=== PATIENT | female | born 1955 | race Caucasian/White ===

== ENCOUNTER 2017-06-17 13:06 | Observation (INO) | payer BC, SELFPAY ==
[2017-06-17] VITALS (9 sets, daily range): BP systolic 98–140; BP diastolic 56–68; PULSE 57–77; RESP 10–18; TEMP 36.6–36.7; O2SAT 94–99; BMI 30.7; BMI 30.4
--- NOTE | 2017-06-17 13:16 | EKG12_ITS ---
Test Reason : Blood Pressure : / mmHG Vent. Rate : 070 BPM Atrial Rate : 070 BPM P-R Int : 146 ms QRS Dur : 086 ms QT Int : 418 ms P-R-T Axes : 053 004 029 degrees QTc Int : 451 ms Normal sinus rhythm Nonspecific ST and T wave abnormality Abnormal ECG Confirmed by JIMMIE BHATTI, SHIRA ([id number]), design editor EZEKIEL PAUL ([id number] on 06/20/2017 2:50:37 PM Referred By: CARISA Confirmed By:SHIRA SAMUEL MD
--- NOTE | 2017-06-17 13:16 | RAD_ITS ---
STUDY: X-RAY CHEST REASON FOR EXAM: Female, 61 years old. Chest pain. TECHNIQUE: Single AP portable view of the chest. COMPARISON: None. FINDINGS: EKG electrodes are seen. The lungs are clear and expanded. Scattered calcified granulomas. There is no demonstrated pleural abnormality. Normal size heart. Normal mediastinum and angela. Normal visualized pulmonary arteries. There is atherosclerotic calcification of the aortic arch with tortuosity. Normal visualized thoracic spine. Normal visualized ribs, clavicles, and shoulders. There is no demonstrated abnormality of the visualized soft tissue structures of the upper abdomen. RAD/Chest 1 View (Portable) IMPRESSION: Normal x-ray examination of the chest. Electronically Signed: Jeff Alexis MD at 13:45 EST Tel [phone], Service support ,
[2017-06-17] MEDS: Aspirin 81 MG TAB.CHEW 324 MG PO (13:26)
[2017-06-17 13:30] LABS: Absolute Lymphocyte Count 4.69 X10^3/ul (0.83-4.51); Absolute Neutrophil Count 2.9 X10^3/uL (2.0-7.7); Basophil# 0.01 X10^3/uL; Basophil% 0.1 % (0-1); Eosinophil# 0.05 X10^3/uL; Eosinophils% 0.6 % (0-5); Hemoglobin 12.8 g/dl (12.0-15.0); Lymphocyte # 4.69 X10^3/ul (4.0); Lymphocyte % 57.9 % (19-41); Mean Corp Hgb Conc 33.7 g/gl (32-36); Mean Corpuscular Hgb 33.3 pg (27.0-32.0); Mean Platelet Vol. 9.8 fl (6.2-12.0); Monocyte# 0.42 X10^3/uL; Monocyte% 5.2 % (0-10); Neutrophil # 2.92 X10^3/uL (2.7-7.7); Neutrophil % 36.1 % (47-70); Platelet Count 209 K/mm3 (150-450); RBC Distribution Width SD 47.3 fl (35.1-43.9); Red Blood Count 3.84 M/mm3 (4.2-5.4); White Blood Count 8.1 K/mm3 (4.4-11.0)
[2017-06-17 13:31] LABS: POSITIVE COUNT NO; POSITIVE DIFFERENTIAL NO; POSITIVE MORPHOLOGY NO
[2017-06-17 13:43] LABS: Anion Gap 6 (5-15); BUN 13 mg/dL (7-18); BUN/Creat Ratio 20.4 RATIO (10-20); Calcium,Total 8.5 mg/dL (8.5-10.1); Chloride 108 mmol/L (98-107); Creatinine, Serum 0.64 mg/dL (0.55-1.02); EST Glomerular Filtration Rate 100 mL/min (>60); Est Glom Filt Rate - Afr Amer 121 mL/min (>60); Glucose 88 mg/dL (74-106); Sodium Level 140 mmol/L (136-145)
--- NOTE | 2017-06-17 13:49 | ED.VISSUMM ---
- ER Visit Summary Date of Service: 06/17/17 Chief Complaint: Chest pain History of Present Illness: The patient is a 61 F presenting with chest pain which started 1-2 hours ago. She states the pain has been intermittent lasting several minutes. It is a dull substernal pain. She states it radiates to her left arm and neck. She denies nausea, vomiting, diaphoresis, shortness of breath. She complains of lightheadedness. She states 2 days ago she had similar symptoms. It worsened today and therefore she presented to the ED. She has a history of borderline hypercholesterolemia. She is a smoker. Denies PE/DVT risk factors. Physical Examination: Vitals are stable. Patient is afebrile. Alert no acute distress. HEENT exam is unremarkable. Neck is supple. Lungs are clear and equal bilaterally. Heart is regular rate and rhythm. Abdomen is soft nontender nondistended. Extremities are unremarkable. Skin is warm and dry. No focal neurologic deficit. Remainder of exam is unremarkable. Emergency Department Course and Treatment: Patient was given aspirin on arrival. EKG is sinus rhythm rate of [address]-T changes. Chest x-ray shows no acute process. CBC, chemistries unremarkable. Troponin is negative. On reevaluation, she is chest pain-free. Discussed with the hospitalist for observation. Disposition: Observation Impression: Chest pain This note was generated with [employer] dictation software. It may contain incorrect words, spelling, and punctuation that were not noted in review of the chart prior to signing ED Disposition - Plan for ED Patient: Chief Complaint: Chest Pain
--- NOTE | 2017-06-17 15:39 | PCM.HP.STD ---
Problem List (1) Chest pain Status: Acute (2) Nicotine abuse Status: Chronic (3) Obesity (BMI 30.0-34.9) Status: Chronic (4) GERD (gastroesophageal reflux disease) Status: Chronic History of Present Illness Date of Admission: 06/17/17 Chief Complaint: chest pain The patient is a 61 year old F with a hx of GERD, smoking, and obesity who presented to the ER from home for chest pain. This initially began about 3 am two days prior. She woke up with the pain while sleeping and described it as a severe midsternal chest ache. It was present for about 2 hours before spontaneously resolving. She could not describe any specific aggravating or alleviating factors. Later that day she did not have any further pain. Today however she was helping her mother bathe when she suddenly began to have the same chest discomfort. This time it would last for about 20 minutes before resolving, and it continued to come and go throughout the day. This prompted her to present to the ER. She noted that the pain did radiate into her back under the left scapula, into her upper left arm, and upper neck into her chin. She had no associated shortness of breath, nausea, vomiting, dizziness, lightheadedness, or palpitations. She has had stress tests in the past, the most recent was in [place] about 2 years ago which was negative. This was done for chest pain that she describes as similar to the current episode. He only medication she takes is Protonix for acid reflux. She has smoked for about 30 years, currently smoking about 5 packs per day. 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 Review of Systems Constitutional: Denies: Chills, Fever, Weight Change, Fatigue HEENT: Denies: Head Aches, Sinus Congestion, Sinus Drainage Cardiovascular: Reports: Chest Pain. Denies: Chest Pressure, Chest Tightness, Edema, Heaviness, Light Headedness, Palpitations Respiratory: Denies: Cough, Shortness of Breath, Shortness of breath at rest, Shortness of breath upon exertion, Sputum production Gastrointestinal: Denies: Abdominal Pain, Diarrhea, Nausea, Vomiting Genitourinary: Denies: Dysuria Musculoskeletal: Denies: Joint Pain, Joint Tenderness Skin: Denies: Rash, Wounds Neurological: Denies: Numbness, Tingling, Focal weakness Psychiatric: Denies: Anxiety, Depression, Homicidal Ideations, Suicidal Ideations Hematologic/ Lymphatic: Denies: Easy Bruising, Easy Bleeding VTE Information - Inpt Only VTE Present on Admission: No VTE Mechan Device Prophylaxis: SCD's VTE Pharm Prophylaxis ordered?: Yes Patient Problems: Active and Suspected Problems Chest pain (Acute) - Physical Exam General: Alert, Oriented x3, Cooperative HEENT: Atraumatic, PERRLA, EOMI, Normocephalic Neck: Supple, No JVD, Negative Carotid Bruits Lungs: Clear to auscultation, Normal air movement Cardiovascular: Regular rate, No murmurs Abdomen: Bowel Sounds Present, Soft, Non Tender Extremities: No edema, Capillary Refill Less than 3 Seconds Skin: No rashes, No breakdown Musculoskeletal: No Tenderness to Palpation of Joints or Extremities Neurological: Cranial nerves II-XII grossly intact Psych/Mental Status: Normal Affect, Appropriate, Alert and oriented to time, place, person, mood and affect Vital Signs Temp Pulse Resp BP Pulse Ox 98.0 F 61 16 116/65 99 06/17/17 13:07 06/17/17 15:14 06/17/17 15:14 06/17/17 15:14 06/17/17 15:14 Oxygen Delivery Method Room Air Assessment/Plan Active and Suspected Problems Chest pain (Acute) 1. Chest pain - intermittent, midsternal aching radiating into the back, left arm, neck, and chin. Hx of smoking and obesity. No family hx of heart disease, no personal hx of prior heart disease. She last had a negative stress for the same symptoms about 2 years ago in [place]. She has a negative troponin, negative EKG, negative CXR. Blood work and physical exam were unremarkable. BP was initially somewhat elevated and has returned to normal since. Will plan tp cycle enzymes, check Echo, repeat EKG in AM, maintain on tele, and treadmill stress test in the AM. 2. Nicotine abuse - patch if desired 3. GERD - continue protonix DVT ppx: lovenox This patient was seen by Suman Howe PA-C under the supervision of Doctor Mansoor.
--- NOTE | 2017-06-17 15:53 | ECHOD_ITS ---
Reason For Study: Chest Pain Procedure This was a 2D Doppler, Color Flow transthoracic echocardiogram. Exam performed portable in patient room. Left Ventricle Normal LV size. Left ventricular systolic function is normal. The estimated ejection fraction is 60 %. No evidence for diastolic dysfunction. No regional wall motion abnormalities noted. Right Ventricle Normal RV size. Normal systolic function. Atria Normal left atrium. Normal right atrium. Mitral Valve Normal mitral valve. Mild (1+) eccentric mitral valve insufficiency. Tricuspid Valve Normal tricuspid valve. Mild (1+) tricuspid valve insufficiency. Pulmonary artery systolic pressure is 20 mmHg. Aortic Valve Normal aortic valve. Trisinus/trileaflet aortic valve. Pulmonic Valve Normal pulmonic valve. Great Vessels Normal aortic root. The pulmonary artery is normal size. Normal inferior vena cava. Pericardium/Pleural No pericardial effusion. MMode/2D Measurements & Calculations LVIDd: 4.1 cm IVSd: 1.3 cm Ao root diam: 2.9 cm LVIDs: 2.9 cm LVPWd: 1.3 cm LA dimension: 4.0 cm RVDd: 3.3 cm FS: 30.4 % LAV(MOD-bp): 43.7 ml LA A4 area: 16.7 cm2 RA A4 area: 12.2 cm2 LAV(MOD-bp) Indexed: 23.5 ml/m2 LAV(MOD-sp2): 43.5 ml LAV(MOD-sp4): 42.2 ml Doppler Measurements & Calculations MV E max roberto: 61.0 cm/sec Lat Peak E' Roberto: 11.2 cm/sec Med Peak E' Roberto: 7.2 cm/sec MV A max roberto: 82.1 cm/sec E/E' lat: 5.5 E/E' med: 8.4 MV E/A: 0.74 Ao V2 max: 133.5 cm/sec AI max roberto: 371.7 cm/sec LV V1 max: 97.3 cm/sec Ao max P.1 mmHg AI max P.3 mmHg LV V1 max P.8 mmHg Ao V2 mean: 95.6 cm/sec AI dec slope: 175.8 cm/sec2 Ao mean P.0 mmHg AI P1/2t: 619.1 msec Ao V2 VTI: 30.8 cm PA V2 max: 91.3 cm/sec TR max roberto: 205.2 cm/sec TR max P.9 mmHg Interpretation Summary Normal LV size. Left ventricular systolic function is normal. The estimated ejection fraction is 60 %. No evidence for diastolic dysfunction. Pulmonary artery systolic pressure is 20 mmHg. Ordering Physician: Marquis Max Performed By: Tasha Sandra RDCS, RVT
[2017-06-17] MEDS: Heparin Injection 5,000 UNITS/ML Syringe 5000 UNITS SC (21:03)
[2017-06-18 02:45] VITALS: BP 104/54; PULSE 67; RESP 16; TEMP 36.7; O2SAT 94
[2017-06-18 03:26] VITALS: PULSE 64
--- NOTE | 2017-06-18 04:00 | EKG12_ITS ---
Test Reason : AM EKG Blood Pressure : / mmHG Vent. Rate : 060 BPM Atrial Rate : 060 BPM P-R Int : 162 ms QRS Dur : 090 ms QT Int : 440 ms P-R-T Axes : 057 024 043 degrees QTc Int : 440 ms Normal sinus rhythm Normal ECG When compared with ECG of 17-JUN-2017 13:13, MANUAL COMPARISON REQUIRED, DATA IS UNCONFIRMED Confirmed by JIMMIE BHATTI, SHIRA ([id number]), fan mail editor EZEKIEL PAUL ([id number]) on 06/22/2017 4:20:52 PM Referred By: CHANG Confirmed By:SHIRA SAMUEL MD
[2017-06-18 04:03] LABS: Mean Corp Hgb Conc 33.3 g/gl (32-36); Mean Corpuscular Hgb 33.1 pg (27.0-32.0); Mean Corpuscular Volume 99.2 fL (81-99); Mean Platelet Vol. 9.5 fl (6.2-12.0); Platelet Count 183 K/mm3 (150-450); RBC Distribution Width SD 47.4 fl (35.1-43.9); Red Blood Count 3.63 M/mm3 (4.2-5.4); White Blood Count 5.8 K/mm3 (4.4-11.0)
[2017-06-18 04:04] LABS: Scan Indicated on CBC? Y/N NO
[2017-06-18 04:06] LABS: Prothrombin Time (Protime)PT. 13.5 SECONDS (11.7-14.9)
[2017-06-18 04:07] LABS: Partial Thromboplast Time 33.7 Seconds (24.1-36.2)
[2017-06-18 04:21] LABS: Anion Gap 8 (5-15); BUN 12 mg/dL (7-18); BUN/Creat Ratio 21.2 RATIO (10-20); Calcium,Total 8.3 mg/dL (8.5-10.1); Chloride 106 mmol/L (98-107); Creatinine, Serum 0.56 mg/dL (0.55-1.02); EST Glomerular Filtration Rate 115 mL/min (>60); Est Glom Filt Rate - Afr Amer 139 mL/min (>60); Estimated Creatinine Clearance 89.95 ml/min; Glucose 84 mg/dL (74-106); Potassium 3.6 mmol/L (3.5-5.1); Sodium Level 141 mmol/L (136-145)
[2017-06-18 06:59] VITALS: PULSE 65
[2017-06-18 07:31] LABS: Cholesterol 205 mg/dL (200); High Density Lipoprotein 39 mg/dL; Triglycerides 207 mg/dL; Very Low Density Lipoprotein 41 mg/dL (5-40)
[2017-06-18 08:45] VITALS: BP 124/69; PULSE 65; RESP 16; TEMP 36.5; O2SAT 92
[2017-06-18] MEDS: Pantoprazole Sodium 40 MG Tablet PO (09:10)
--- NOTE | 2017-06-18 10:03 | STRESSREP_ITS ---
Stress Test Report Stress myocardial perfusion test 61-year-old lady with a history of chest pain. Stress protocol: Resting EKG demonstrates normal sinus rhythm with a rate of 62 bpm resting blood pressure is 122/78 mmHg. The patient exercised according to the regular Yifan protocol for total duration of 6 minutes and 31 seconds attaining a maximum heart rate of 160 bpm which was 101% of maximum predicted heart rate the maximum workload attained was 7.8 metabolic equivalents. The patient maintained sinus rhythm throughout the recording. At rest there were no ST or T -wave changes noted suggest ischemia peak exercise upsloping ST changes only were noted we did not meet the criteria for ischemia. The resting blood pressure is 122/78 with a peak blood pressure 182/72. No clinical angina was noted no arrhythmias were noted. Myocardial perfusion protocol. 11.9 mCi of technetium 99m sestamibi was injected at rest. 35.9 mCi of technetium 99m sestamibi was injected at peak exercise after attainment of at least 85% of the maximum predicted heart rate. Stress and rest images were reconstructed and compared in the short axis vertical long horizontal long axis. Gated images were also obtained. Perfusion SPECT analysis: Review of the stress images demonstrate normal uptake of tracer noted in all areas of the myocardium. The resting images similarly demonstrate normal uptake of tracer noted in all areas of the myocardium. No areas of reversibility are noted suggest ischemia. No infarct is noted. Gated SPECT analysis: The gated ejection fraction is 69%. Conclusion: Normal exercise myocardial perfusion stress test at a moderate workload. Preserved ejection fraction.
--- NOTE | 2017-06-18 10:32 | PCM.DC ---
- Discharge Diagnoses Current Active Problems: Current Active and Chronic Problems Chest pain (Acute) Nicotine abuse (Chronic) Obesity (BMI 30.0-34.9) (Chronic) GERD (gastroesophageal reflux disease) (Chronic) You will use the following diet at home:: No restrictions Your food should be the consistency of: Regular Your liquids should be the consistency of: Regular/Thin Discharge Activity: Return to Normal Activity Weight Bearing Status: Full weight bearing Allergies/Adverse Reactions: Allergies No Known Allergies Allergy (Verified 06/17/17 13:09) Medications to take at Discharge Pantoprazole Sodium [Protonix] 40 mg PO DAILY 06/17/17 Primary Care Physician: Aguilar Espitia [Primary Care Provider] - Please follow up with your Primary Care Physician in: in 2 weeks
[2017-06-18 11:14] VITALS: PULSE 67
[2017-06-18 12:50] VITALS: BP 118/67; PULSE 66; RESP 16; TEMP 36.5; O2SAT 93
--- NOTE | 2017-06-19 11:41 | PCM.DC.SUM ---
Discharge Date and Diagnosis Date of Admission: 06/17/17 Date of Discharge: 06/18/17 - Primary Discharge Diagnosis #1 musculoskeletal chest pain #2 GERD - Secondary Discharge Diagnosis Chronic Problems Nicotine abuse (Chronic) Obesity (BMI 30.0-34.9) (Chronic) GERD (gastroesophageal reflux disease) (Chronic) Hospital Course and Treatment Operations: None Procedures: 2-D Echocardiogram, Nuclear stress test Summary of Care Provided: The patient is a 61 year old F was seen in the emergency room at [facility] with chief complaint of intermittent chest pain. She described it as a dull substernal pain. Workup in the emergency room included an EKG which showed a normal sinus rhythm at 70 without ischemic changes, chest x-ray showed no acute process, lab was unremarkable including troponin. Patient's chest discomfort resolved while she was in the emergency room. Patient was placed in observation status on PCU, cardiac enzymes were cycled, these remained normal and she underwent a nuclear exercise stress test which was negative for reversible ischemia. Patient also underwent an echocardiogram which showed a normal EF and no evidence of valvular disease. On 06/18/17, patient was seen and examined and felt to be in stable condition for discharge home Discharge Activity: Return to Normal Activity Weight Bearing Status: Full weight bearing Home Medications: Medications to take at Discharge Pantoprazole Sodium [Protonix] 40 mg PO DAILY 06/17/17 Primary Care Physician: Aguilar Espitia [Primary Care Provider] - Please follow up with your Primary Care Physician in: in 2 weeks Please Follow Up With: Aguilar Espitia When: 2 weeks Disposition: Home Minutes spent on discharge:: 27 Patient Condition:: Stable Meaningful Use Info Meaningful Use Diagnoses (Choose all that apply): None applicable Code Visit OBSV E&M: 02036 Observation care discharge
--- NOTE | 2017-06-19 11:44 | DS.PCM_ITS ---
Discharge Date and Diagnosis Date of Admission: 06/17/17 Date of Discharge: 06/18/17 - Primary Discharge Diagnosis #1 musculoskeletal chest pain #2 GERD - Secondary Discharge Diagnosis Chronic Problems Nicotine abuse (Chronic) Obesity (BMI 30.0-34.9) (Chronic) GERD (gastroesophageal reflux disease) (Chronic) Hospital Course and Treatment Operations: None Procedures: 2-D Echocardiogram, Nuclear stress test Summary of Care Provided: The patient is a 61 year old F was seen in the emergency room at [facility] with chief complaint of intermittent chest pain. She described it as a dull substernal pain. Workup in the emergency room included an EKG which showed a normal sinus rhythm at 70 without ischemic changes, chest x-ray showed no acute process, lab was unremarkable including troponin. Patient 's chest discomfort resolved while she was in the emergency room. Patient was placed in observation status on PCU, cardiac enzymes were cycled, these remained normal and she underwent a nuclear exercise stress test which was negative for reversible ischemia. Patient also underwent an echocardiogram which showed a normal EF and no evidence of valvular disease. On 06/18/17, patient was seen and examined and felt to be in stable condition for discharge home Discharge Activity: Return to Normal Activity Weight Bearing Status: Full weight bearing Home Medications: Medications to take at Discharge Pantoprazole Sodium [Protonix] 40 mg PO DAILY 06/17/17 Primary Care Physician: Aguilar Espitia [Primary Care Provider] - Please follow up with your Primary Care Physician in: in 2 weeks Please Follow Up With: Aguilar Espitia When: 2 weeks Disposition: Home Minutes spent on discharge:: 27 Patient Condition:: Stable Meaningful Use Info Meaningful Use Diagnoses (Choose all that apply): None applicable Code Visit OBSV E&M: 27357 Observation care discharge
== END 2017-06-18 10:32 | disposition home or self-care (01) ==
LOC: ED 14:48 → PCU 15:05
PROVIDERS: Admitting Provider Internal Medicine; Emergency Provider Emergency Medicine; Family Provider Physician Assistant; PCP Physician Assistant; Visit Provider Internal Medicine
DX: R07.89 Other chest pain (principal); R42 Dizziness and giddiness; E66.9 Obesity, unspecified; Z68.30 Body mass index [BMI] 30.0-30.9, adult; Z71.3 Dietary counseling and surveillance; K21.9 Gastro-esophageal reflux disease without esophagitis; F17.210 Nicotine dependence, cigarettes, uncomplicated; Z79.899 Other long term (current) drug therapy
CPT/HCPCS: 36415; 71045; 78452; 80048; 80061; 84484; 85025; 85027; 85610; 85730; 93005; 93017; 93306; 96372; 99218; 99283; 99406; A9500; A4216; G0378